=== PATIENT | male | born 1960 | race Hispanic/Latino ===

== ENCOUNTER 2018-04-24 04:11 | Emergency (ER) | payer OTHER ==
[2018-04-24 05:03] VITALS: BP 136/94; PULSE 100; RESP 19; TEMP 97.9; O2SAT 96
--- NOTE | 2018-04-24 05:20 | ED PDOC ---
HPI: Male Pain Time Seen by Provider: 04/24/18 04:20 Chief Complaint (Nursing): Male Genitourinary Chief Complaint (Provider): Male Genitourinary History Per: Patient History/Exam Limitations: no limitations Onset/Duration Of Symptoms: Hrs Current Symptoms Are (Timing): Still Present Additional Complaint(s): 57 y/o male with a PMHx of an enlarged prostrate presents to the ED for evaluation of urinary retention. Patient reports he has not been able to put out urine for about four hours. Otherwise, patient denies fever, nausea and vomiting. PMD: no provider Past Medical History Reviewed: Historical Data, Nursing Documentation, Vital Signs Vital Signs: Last Vital Signs Temp 97.9 F 04/24/18 05:00 Pulse 100 H 04/24/18 05:00 Resp 19 04/24/18 05:00 BP 136/94 H 04/24/18 05:00 Pulse Ox 96 04/24/18 05:00 - Medical History PMH: Benign Prostatic Hyperplasia - Surgical History Surgical History: No Surg Hx - Family History Family History: States: Unknown Family Hx - Allergies Allergies/Adverse Reactions: Allergies Allergy/AdvReac Type Severity Reaction Status Date / Time codeine AdvReac PAIN Verified 04/24/18 04:26 Review of Systems ROS Statement: Except As Marked, All Systems Reviewed And Found Negative Constitutional: Negative for: Fever Gastrointestinal: Negative for: Nausea, Vomiting Genitourinary Male: Positive for: Other (urinary retention) Physical Exam - Reviewed Nursing Documentation Reviewed: Yes Vital Signs Reviewed: Yes - Physical Exam Appears: Positive for: Uncomfortable Head Exam: Positive for: ATRAUMATIC Skin: Positive for: Normal Color, Warm, Dry Eye Exam: Positive for: Normal appearance, EOMI, PERRL Neck: Positive for: Normal, Painless ROM Cardiovascular/Chest: Positive for: Regular Rate, Rhythm. Negative for: Murmur Respiratory: Positive for: Normal Breath Sounds. Negative for: Respiratory Distress Gastrointestinal/Abdominal: Positive for: Distended (distended abdomen in the suprapubic region) Extremity: Positive for: Normal ROM. Negative for: Deformity Neurologic/Psych: Positive for: Alert, Oriented. Negative for: Motor/Sensory Deficits - ECG O2 Sat by Pulse Oximetry: 96 (RA) Pulse Ox Interpretation: Normal Medical Decision Making Medical Decision Making: Time: 0445 A/P: 57 y/o with an enlarged prostrate presenting with urinary retention. -- Will place moss catheter -- Reassess patient. Time: 0516 -- 800 CCs of urine drained. Patient reports of feeling better. Vital signs are stable. Patient reports he does not want to go home with moss, thus moss was removed. Patient is stable for discharge home. -- Moss Urine Catheter. Scribe Attestation: Documented by Celine Fried, acting as a scribe for Andre Shrestha MD. Provider Scribe Attestation: All medical record entries made by the Scribe were at my direction and personally dictated by me. I have reviewed the chart and agree that the record accurately reflects my personal performance of the history, physical exam, medical decision making, and the department course for this patient. I have also personally directed, reviewed, and agree with the discharge instructions and disposition. Disposition - Clinical Impression Clinical Impression: Urinary retention - Disposition Referrals: [facility] [Outside] Mark Good Jr., MD [Staff Provider] - Disposition: Routine/Home Disposition Time: 05:15 Condition: IMPROVED Instructions: Urinary Retention Forms: [facility] (Bengali)
== END 2018-04-24 05:16 | disposition home or self-care (01) ==
LOC: H.ER 04:11
DX: R33.9 Retention of urine, unspecified (principal)

== ENCOUNTER 2018-07-24 02:21 | Emergency (ER) | payer OTHER ==
[2018-07-24 02:41] VITALS: BMI 27.3
[2018-07-24 02:45] VITALS: O2SAT 97
--- NOTE | 2018-07-24 03:28 | ED PDOC ---
HPI: Male Pain Time Seen by Provider: 07/24/18 02:58 Chief Complaint (Nursing): Male Genitourinary Chief Complaint (Provider): Male Genitourinary History Per: Patient History/Exam Limitations: no limitations Onset/Duration Of Symptoms: Days Current Symptoms Are (Timing): Still Present Additional Complaint(s): 57 y/o male presents to the ED for evaluation of urinary retention. Patient states that approximately 3 hours prior to arrival, patient had an urge to urinate but was unable to pass urine. Patient reports of a history of urinary retention secondary to BPH. PMD: no provider Past Medical History Reviewed: Historical Data, Nursing Documentation, Vital Signs Vital Signs: Last Vital Signs Temp 97.6 F 07/24/18 02:43 Pulse 104 H 07/24/18 02:43 Resp 18 07/24/18 02:43 BP 184/113 H 07/24/18 02:43 Pulse Ox 97 07/24/18 02:43 - Medical History PMH: Benign Prostatic Hyperplasia - Surgical History Surgical History: No Surg Hx - Family History Family History: States: Unknown Family Hx - Allergies Allergies/Adverse Reactions: Allergies Allergy/AdvReac Type Severity Reaction Status Date / Time codeine AdvReac PAIN Verified 07/24/18 02:41 Review of Systems ROS Statement: Except As Marked, All Systems Reviewed And Found Negative Genitourinary Male: Positive for: Other (urinary retention) Physical Exam - Reviewed Nursing Documentation Reviewed: Yes Vital Signs Reviewed: Yes - Physical Exam Appears: Positive for: Uncomfortable Head Exam: Positive for: ATRAUMATIC, NORMOCEPHALIC Skin: Positive for: Normal Color, Warm, Dry Eye Exam: Positive for: Normal appearance, EOMI, PERRL Neck: Positive for: Normal Cardiovascular/Chest: Positive for: Regular Rate, Rhythm Respiratory: Positive for: Normal Breath Sounds Gastrointestinal/Abdominal: Positive for: Distended (suprapubic area). Negative for: Tenderness Back: Negative for: L CVA Tenderness, R CVA Tenderness Neurological/Psych: Positive for: Awake, Alert, Oriented (x3). Negative for: Motor/Sensory Deficits - ECG O2 Sat by Pulse Oximetry: 97 (RA) Pulse Ox Interpretation: Normal Medical Decision Making Medical Decision Making: Time: 317 Plan: -- Forbes Urinary Catheter -- Urinalysis Time: 331 -- Straight catheter placed by RN. 700 ccs was voided. Patient reports complete relief of symptoms and is requesting to be discharged home. Scribe Attestation: Documented by Celine Fried, acting as a scribe Renetta Jett PA-C. Provider Scribe Attestation: All medical record entries made by the Scribe were at my direction and personally dictated by me. I have reviewed the chart and agree that the record accurately reflects my personal performance of the history, physical exam, medical decision making, and the department course for this patient. I have also personally directed, reviewed, and agree with the discharge instructions and disposition. Disposition - Clinical Impression Clinical Impression: Urinary retention - Patient ED Disposition Is Patient to be Admitted: No - Disposition Referrals: David Ny MD [Staff Provider] - Disposition: Routine/Home Disposition Time: 03:32 Condition: IMPROVED Additional Instructions: LURDES MOHAMUD, thank you for letting us take care of you today. Your provider was Geni Birch MD and you were treated for MALE GENITOURINARY. The emergency medical care you received today was directed at your acute symptoms. If you were prescribed any medication, please fill it and take as directed. It may take several days for your symptoms to resolve. Return to the Emergency Department if your symptoms worsen, do not improve, or if you have any other problems. Please contact your doctor or call one of the physicians/clinics you have been referred to that are listed on the Patient Visit Information form that is included in your discharge packet. Bring any paperwork you were given at discharge with you along with any medications you are taking to your follow up visit. Our treatment cannot replace ongoing medical care by a primary care provider outside of the emergency department. Thank you for allowing the [facility] team to be part of your care today. If you had an X-Ray or CT scan: A Radiologist will review the ED reading if any change in treatment is needed we will contact you. If you had a blood, urine, or wound culture: It will take several days for the results, if any change in treatment is needed we will contact you. If you had an STI test: It will take 48 hours for the results. Please call after 1 week if you have not heard back. Instructions: Urinary Retention (DC) Forms: [employer] (Australian)
[2018-07-24 03:32] VITALS: BP 146/98; PULSE 94; RESP 16; TEMP 97.8
[2018-07-24 03:53] LABS: URINE BACTERIA RARE (<OCC); URINE BILIRUBIN NEGATIVE (NEGATIVE); URINE BLOOD LARGE (NEGATIVE); URINE CLARITY CLEAR (Clear); URINE COLOR YELLOW (YELLOW); URINE GLUCOSE (UA) NEG (NEGATIVE); URINE LEUKOCYTE ESTERASE NEG Leu/uL (Negative); URINE PROTEIN NEGATIVE (NEGATIVE); URINE UROBILINOGEN 0.2-1.0 mg/dL (0.2-1.0)
== END 2018-07-24 03:32 | disposition home or self-care (01) ==
LOC: H.ER 02:21
DX: R33.9 Retention of urine, unspecified (principal); N40.1 Benign prostatic hyperplasia with lower urinary tract symptoms; Z88.5 Allergy status to narcotic agent